=== PATIENT | female | born 1940 | race African-American/Black ===

== ENCOUNTER 2019-06-26 15:21 | Inpatient (IN) | payer MEDICARE, MEDICAID ==
[~2019-06-26] VITALS: Ht 165.1 cm; Wt 44.9 kg
[2019-06-26] MEDS ORDERED: ASPIRIN 81MG TABLET PO ONE (16:00)
[2019-06-26 16:28] LABS: BASOPHILS % 0.2 % (0.0-2.0); EOSINOPHILS % 0.2 % (0.0-5.0); HEMATOCRIT. 40.6 % (36.0-48.0); HEMOGLOBIN. 14.1 g/dL (12.0-16.0); LYMPHOCYTES % 9.4 % (20.0-50.0); MEAN CORPUSCULAR VOLUME 92.5 fL (81.0-99.0); MEAN PLATELET VOLUME 8.6 fl (7.4-10.4); MONOCYTES % 14.2 % (2.0-8.0); PLATELET 248 x1000/uL (130-400); RED BLOOD CELL COUNT 4.39 mill/uL (4.2-5.4)
[2019-06-26] MEDS: NITROGLYCERIN 0.4MG TABLET SL SL PRN ×2 (16:28→19:19)
[2019-06-26 16:31] LABS: CHLORIDE 99 mEq/L (98-107)
[2019-06-26] MEDS ORDERED: AMLODIPINE 2.5MG TABLET PO ONE (17:30)
[2019-06-26] MEDS ORDERED: ACETAMINOPHEN 325MG TABLET PO PRN (20:30)
[2019-06-26] MEDS ORDERED: ONDANSETRON HCL 4MG/2ML INJ IV PRN (20:30)
[2019-06-26] MEDS ORDERED: IPRATROPIUM/ALBUTEROL 0.5-3(2.5)MG/3ML NEB HHN PRN (20:30)
[2019-06-27 00:40] VITALS: BP 160/64
[2019-06-27] MEDS ORDERED: ATOR10TA69 MT (02:26)
[2019-06-27] MEDS ORDERED: CHOL40002 MT (02:26)
[2019-06-27] MEDS ORDERED: ALBU18HF2 IH (02:26)
[2019-06-27] MEDS ORDERED: FLUT1DIS3 INH (02:26)
[2019-06-27 04:00] VITALS: BP 143/41
[2019-06-27 08:00] VITALS: BP 132/62
[2019-06-27] MEDS ORDERED: ENOXAPARIN 40MG/0.4ML SYR SUBCUT SCH (09:00)
[2019-06-27] MEDS: ASPIRIN 81MG TABLET PO SCH (09:27)
[2019-06-27 12:00] VITALS: BP 122/72
[2019-06-27] MEDS: CLOPIDOGREL 75MG TABLET PO SCH (13:15)
[2019-06-27 16:00] VITALS: BP 125/74
[2019-06-27] MEDS ORDERED: FUROSEMIDE 40MG/4ML VIAL IVP NR (17:15)
[2019-06-27] MEDS: NITROGLYCERIN OINT 1GM/INCH UDPKT TD SCH ×2 (18:21→21:18)
[2019-06-27 20:00] VITALS: BP 122/62
[2019-06-27] MEDS ORDERED: ATORVASTATIN CALCIUM 20MG TABLET PO SCH (21:00)
[2019-06-27] MEDS: CARVEDILOL 6.25 MG TABLET PO SCH (21:17)
[2019-06-27] MEDS ORDERED: GUAIFENESIN-DM 200MG-20MG/10ML UDC PO PRN (23:45)
[2019-06-27] MEDS ORDERED: LORAZEPAM 1MG TABLET PO PRN (23:45)
[2019-06-28] VITALS: BP 139/58
[2019-06-28 04:00] VITALS: BP 167/62
[2019-06-28] MEDS: NITROGLYCERIN OINT 1GM/INCH UDPKT TD SCH (05:10)
[2019-06-28] MEDS: CLONIDINE 0.2MG TABLET PO PRN ×2 (05:44→08:31)
[2019-06-28 08:00] VITALS: BP 169/62
[2019-06-28] MEDS: CLOPIDOGREL 75MG TABLET PO SCH (08:30)
[2019-06-28] MEDS: CARVEDILOL 6.25 MG TABLET PO SCH (08:31)
[2019-06-28] MEDS: ASPIRIN 81MG TABLET PO SCH (08:31)
[2019-06-28] MEDS ORDERED: ENOXAPARIN 30MG/0.3ML SYR SUBCUT SCH (09:00)
[2019-06-28 12:00] VITALS: BP 107/52
[2019-06-28] MEDS ORDERED: ASPI-1160 PO (12:43)
[2019-06-28] MEDS ORDERED: AMLO5TAB88 MT (12:43)
[2019-06-28 13:52] VITALS: BP 107/52
== END 2019-06-28 15:20 | disposition home or self-care (01) | DRG 133 ==
LOC: ER 15:21 → 5WST 19:53 → EDBEDREQ 20:02 → ENRESERV 22:50
PROVIDERS: ADMIT Internal Medicine; ATTEND Internal Medicine
DX: J96.20 Acute and chronic respiratory failure, unspecified whether with hypoxia or hypercapnia (principal); I27.20 Pulmonary hypertension, unspecified; E87.1 Hypo-osmolality and hyponatremia; Z99.81 Dependence on supplemental oxygen; M94.0 Chondrocostal junction syndrome [Tietze]; E78.5 Hyperlipidemia, unspecified; J44.9 Chronic obstructive pulmonary disease, unspecified; F41.9 Anxiety disorder, unspecified; I10 Essential (primary) hypertension; J98.11 Atelectasis; Z87.891 Personal history of nicotine dependence; I25.10 Atherosclerotic heart disease of native coronary artery without angina pectoris; Z79.899 Other long term (current) drug therapy; Z88.0 Allergy status to penicillin; Z09 Encounter for follow-up examination after completed treatment for conditions other than malignant neoplasm; Z91.041 Radiographic dye allergy status; M19.90 Unspecified osteoarthritis, unspecified site
CPT/HCPCS: 36415; 71045; 80053; 80061; 83880; 84443; 84484; 85025; 93005; 93306; 99291; J1650; J1940

== ENCOUNTER 2021-10-30 16:44 | Inpatient (IN) | payer MEDICARE, OTHER ==
[~2021-10-30] VITALS: Ht 154.9 cm; Wt 45.4 kg
[~2021-10-30 16:44] MED LIST: ALBU18HF2 IH; AMLO5TAB88 MT; ASPI-1160 PO; ATOR10TA69 MT; CHOL40002 MT; FLUT1DIS3 INH
[2021-10-30] MEDS ORDERED: ACETAMINOPHEN 325MG TABLET PO ONE (18:00)
[2021-10-30] MEDS ORDERED: SODIUM CHLORIDE 0.9% 1000ML BAG (SEPSIS BOLUS) IV ONE (18:00)
[2021-10-30] MEDS ORDERED: LEVOFLOXACIN 750MG PREMIX 150 ML IV ONE (18:00)
[2021-10-30] MEDS ORDERED: PIPERACILLIN/TAZ 3.375G PREMIX 50 ML IV ONE (19:15)
[2021-10-30 19:35] LABS: BASOPHILS % 0.3 % (0.0-2.0); HEMATOCRIT. 42.2 % (36.0-48.0); HEMOGLOBIN. 14.1 g/dL (12.0-16.0); MEAN CORPUSCULAR HEMOGLOBIN 32.6 pg (28.0-32.0); MEAN CORPUSCULAR VOLUME 97.7 fL (81.0-99.0); MONOCYTES % 8.4 % (2.0-8.0); NEUTROPHILS % 80.3 % (40.0-76.0); PLATELET 144 x1000/uL (130-400); RED BLOOD CELL COUNT 4.32 mill/uL (4.2-5.4); RED CELL DISTRIBUTION WIDTH 13.4 % (11.6-14.6)
[2021-10-30 19:39] LABS: CHLORIDE 99 mEq/L (98-107)
[2021-10-31 02:00] VITALS: BP 139/66
[2021-10-31] MEDS ORDERED: ACETAMINOPHEN 325MG TABLET PO PRN ×2 (03:30)
[2021-10-31 04:00] VITALS: BP 114/56
[2021-10-31 08:00] VITALS: BP 126/90
[2021-10-31] MEDS: AZITHROMYCIN 500 MG in DEXT 5% WATER 250 ML IV SCH (08:29)
[2021-10-31] MEDS: AMLODIPINE 10MG TABLET PO SCH (08:29)
[2021-10-31] MEDS: DEXAMETHASONE 2MG TABLET PO SCH (08:29)
[2021-10-31] MEDS ORDERED: ENOXAPARIN 40MG/0.4ML SYR SUBCUT SCH (09:00)
[2021-10-31 12:00] VITALS: BP 125/86
[2021-10-31 16:00] VITALS: BP_SYST 143; BP_SYST 86; BP_DIAS 51; BP_DIAS 59
[2021-10-31 20:00] VITALS: BP 159/70
[2021-10-31] MEDS ORDERED: ALBUTEROL 6.7GM HFA INHALER ORI PRN (23:00)
[2021-10-31] MEDS ORDERED: CLONIDINE 0.1MG TABLET PO PRN (23:45)
[2021-11-01] VITALS: BP 174/72
[2021-11-01 04:00] VITALS: BP 132/67
[2021-11-01 08:00] VITALS: BP 154/63
[2021-11-01] MEDS: ENOXAPARIN 30MG/0.3ML SYR SUBCUT SCH (08:27)
[2021-11-01] MEDS: DEXAMETHASONE 2MG TABLET PO SCH (08:28)
[2021-11-01] MEDS: AZITHROMYCIN 500 MG in DEXT 5% WATER 250 ML IV SCH (08:28)
[2021-11-01] MEDS: AMLODIPINE 10MG TABLET PO SCH (08:29)
[2021-11-01 12:00] VITALS: BP 133/58
[2021-11-01] MEDS ORDERED: AZIT250T12 MT (12:04)
[2021-11-01 16:00] VITALS: BP 143/65
[2021-11-01 20:00] VITALS: BP 136/51
[2021-11-02] VITALS: BP 132/52
[2021-11-02 04:00] VITALS: BP 128/53
[2021-11-02 08:00] VITALS: BP 135/53
[2021-11-02] MEDS: DEXAMETHASONE 2MG TABLET PO SCH (08:39)
[2021-11-02] MEDS: ENOXAPARIN 30MG/0.3ML SYR SUBCUT SCH (08:39)
[2021-11-02] MEDS: AZITHROMYCIN 500 MG in DEXT 5% WATER 250 ML IV SCH (08:40)
[2021-11-02] MEDS: AMLODIPINE 10MG TABLET PO SCH (08:40)
[2021-11-02 12:00] VITALS: BP 144/75
[2021-11-02 16:00] VITALS: BP 142/70
[2021-11-02 20:00] VITALS: BP 147/72
[2021-11-03] VITALS: BP 111/73
[2021-11-03 04:00] VITALS: BP 102/48
[2021-11-03 08:00] VITALS: BP 135/53
[2021-11-03] MEDS: ENOXAPARIN 30MG/0.3ML SYR SUBCUT SCH (08:44)
[2021-11-03] MEDS: AZITHROMYCIN 500 MG in DEXT 5% WATER 250 ML IV SCH (08:44)
[2021-11-03] MEDS: DEXAMETHASONE 2MG TABLET PO SCH (08:44)
[2021-11-03] MEDS: AMLODIPINE 10MG TABLET PO SCH (08:44)
[2021-11-03 12:00] VITALS: BP 115/54
[2021-11-03 16:00] VITALS: BP 114/56
[2021-11-03 20:00] VITALS: BP 139/48
[2021-11-04] VITALS: BP 147/65
[2021-11-04 04:00] VITALS: BP 154/58
[2021-11-04 08:00] VITALS: BP 105/69
[2021-11-04] MEDS: AMLODIPINE 10MG TABLET PO SCH (08:20)
[2021-11-04] MEDS: ENOXAPARIN 30MG/0.3ML SYR SUBCUT SCH (09:43)
[2021-11-04] MEDS: DEXAMETHASONE 6MG TABLET PO SCH (09:43)
[2021-11-04] MEDS: AZITHROMYCIN 500 MG in DEXT 5% WATER 250 ML IV SCH (09:43)
[2021-11-04 12:00] VITALS: BP 122/48
[2021-11-04 16:00] VITALS: BP 157/58
[2021-11-04 20:00] VITALS: BP 158/70
[2021-11-04] MEDS: ALBUTEROL 6.7GM HFA INHALER ORI SCH (23:00)
[2021-11-05] VITALS: BP 128/53
[2021-11-05 04:00] VITALS: BP 148/50
[2021-11-05] MEDS: ALBUTEROL 6.7GM HFA INHALER ORI SCH (05:00)
[2021-11-05 08:00] VITALS: BP 148/38
[2021-11-05] MEDS: AMLODIPINE 10MG TABLET PO SCH (10:39)
[2021-11-05] MEDS: DEXAMETHASONE 6MG TABLET PO SCH (10:39)
[2021-11-05] MEDS: ENOXAPARIN 30MG/0.3ML SYR SUBCUT SCH (10:40)
[2021-11-05] MEDS ORDERED: GUAIFENESIN-DM 200MG-20MG/10ML UDC PO PRN (11:00)
[2021-11-05 12:00] VITALS: BP 154/45
[2021-11-05 16:00] VITALS: BP 144/54
[2021-11-05 20:00] VITALS: BP 142/57
[2021-11-05 20:39] LABS: HEMATOCRIT. 42.7 % (36.0-48.0); HEMOGLOBIN. 14.6 g/dL (12.0-16.0); MEAN CORPUSCULAR HEMOGLOBIN 32.6 pg (28.0-32.0); MEAN CORPUSCULAR VOLUME 95.1 fL (81.0-99.0); MEAN PLATELET VOLUME 9.4 fl (7.4-10.4); PLATELET 207 x1000/uL (130-400); RED BLOOD CELL COUNT 4.49 mill/uL (4.2-5.4)
[2021-11-05 21:03] LABS: CHLORIDE 100 mEq/L (98-107)
[2021-11-05 21:04] LABS: PLATELET ESTIMATE NORMAL
[2021-11-06] VITALS: BP 124/85
[2021-11-06 04:00] VITALS: BP_SYST 146; BP_SYST 147; BP_DIAS 47
[2021-11-06 08:00] VITALS: BP 158/50
[2021-11-06] MEDS: ENOXAPARIN 30MG/0.3ML SYR SUBCUT SCH (08:32)
[2021-11-06] MEDS: AMLODIPINE 10MG TABLET PO SCH (08:32)
[2021-11-06] MEDS: DEXAMETHASONE 6MG TABLET PO SCH (08:32)
[2021-11-06 12:00] VITALS: BP 145/45
[2021-11-06 16:00] VITALS: BP 140/48
[2021-11-06 20:00] VITALS: BP 142/59
[2021-11-07] VITALS: BP 164/66
[2021-11-07 04:00] VITALS: BP 133/44
[2021-11-07 08:00] VITALS: BP 138/50
[2021-11-07 08:08] LABS: CHLORIDE 104 mEq/L (98-107)
[2021-11-07 08:17] LABS: HEMATOCRIT 41.4 % (36.0-48.0); HEMOGLOBIN 14.2 g/dL (12.0-16.0); MEAN CORPUSCULAR HEMOGLOBIN 32.6 pg (28.0-32.0); MEAN CORPUSCULAR VOLUME 95.4 fL (81.0-99.0); PLATELET 169 x1000/uL (130-400); RED BLOOD CELL COUNT 4.34 mill/uL (4.2-5.4); RED CELL DISTRIBUTION WIDTH 13.5 % (11.6-14.6)
[2021-11-07] MEDS: DEXAMETHASONE 6MG TABLET PO SCH (09:10)
[2021-11-07] MEDS: AMLODIPINE 10MG TABLET PO SCH (09:10)
[2021-11-07] MEDS: ENOXAPARIN 30MG/0.3ML SYR SUBCUT SCH (09:10)
[2021-11-07] MEDS: ALBUTEROL 6.7GM HFA INHALER ORI SCH ×4 (11:18→23:56)
[2021-11-07 12:00] VITALS: BP 142/50
[2021-11-07 13:14] LABS: BG BASE EXCESS 0.8 mmol/L (-2.0-2.0); BG CARBOXYHEMOGLOBIN 0.8 % (0.5-1.5); BG DEOXYHEMOGLOBIN 10.6 % (0.0-5.0); BG FRACTION INSPIRED OXYGEN 36; BG HCO3 ACT 22.9 mmol/L (22.0-26.0); BG METHEMOGLOBIN 0.2 % (0.0-1.5); BG OXYGEN SATURATION 89.3 % (92.0-98.5); BG OXYHEMOGLOBIN 88.4 % (94.0-97.0); BG PCO2 30.3 mmHg (35.0-45.0); BG PH 7.497 (7.350-7.450); BG PO2 51.5 mmHg (75.0-100.0); BG SAMPLE SITE RIGHT RADIAL; BG TOTAL HEMOGLOBIN 15.3 g/dL (12.0-18.0); BG VENT MODE NASAL CANNULA
[2021-11-07 16:00] VITALS: BP 140/58
[2021-11-07 20:00] VITALS: BP 140/68
[2021-11-07 20:27] LABS: CLARITY URINE CLEAR (CLEAR); COLOR URINE YELLOW (YELLOW); KETONES URINE TRACE (NEGATIVE); LEUKOCYTE ESTERASE URINE NEGATIVE (NEGATIVE); NITRITE URINE NEGATIVE (NEGATIVE); OCCULT BLOOD URINE NEGATIVE (NEGATIVE); PH URINE 5.5 (4.5-8.0); PROTEIN URINE 1+ (NEGATIVE); SPECIFIC GRAVITY URINE 1.027 (1.005-1.030)
[2021-11-08] VITALS: BP 139/55
[2021-11-08 04:00] VITALS: BP 134/78
[2021-11-08] MEDS: ALBUTEROL 6.7GM HFA INHALER ORI SCH ×6 (04:11→23:56)
[2021-11-08 08:00] VITALS: BP 123/53
[2021-11-08] MEDS: ENOXAPARIN 30MG/0.3ML SYR SUBCUT SCH (08:41)
[2021-11-08] MEDS: AMLODIPINE 10MG TABLET PO SCH (08:41)
[2021-11-08] MEDS: DEXAMETHASONE 6MG TABLET PO SCH (08:41)
[2021-11-08 12:00] VITALS: BP 131/49
[2021-11-08 16:00] VITALS: BP 142/45
[2021-11-08 20:00] VITALS: BP 124/61
[2021-11-08] MEDS: QUETIAPINE FUMARATE 25MG TABLET PO SCH (21:02)
[2021-11-09] VITALS: BP 123/45
[2021-11-09] MEDS: ALBUTEROL 6.7GM HFA INHALER ORI SCH ×4 (03:53→12:00)
[2021-11-09 08:00] VITALS: BP 133/53
[2021-11-09] MEDS: AMLODIPINE 10MG TABLET PO SCH (09:00)
[2021-11-09] MEDS: QUETIAPINE FUMARATE 25MG TABLET PO SCH ×2 (09:00→20:48)
[2021-11-09] MEDS: ENOXAPARIN 30MG/0.3ML SYR SUBCUT SCH (09:00)
[2021-11-09 12:00] VITALS: BP 157/51
[2021-11-09] MEDS ORDERED: LORAZEPAM 2MG/ML CPJ IV PRN (12:00)
[2021-11-09 16:00] VITALS: BP 153/52
[2021-11-09 20:00] VITALS: BP 142/58
[2021-11-10] VITALS: BP 138/50
[2021-11-10 04:00] VITALS: BP 144/57
[2021-11-10 08:00] VITALS: BP_SYST 149
[2021-11-10] MEDS: ALBUTEROL 6.7GM HFA INHALER ORI SCH ×4 (08:00→21:54)
[2021-11-10] MEDS: AMLODIPINE 10MG TABLET PO SCH (09:41)
[2021-11-10] MEDS: QUETIAPINE FUMARATE 25MG TABLET PO SCH ×2 (09:41→21:51)
[2021-11-10] MEDS: ENOXAPARIN 30MG/0.3ML SYR SUBCUT SCH (09:41)
[2021-11-10 12:00] VITALS: BP 115/52
[2021-11-10 16:00] VITALS: BP 124/52
[2021-11-10 20:00] VITALS: BP 128/44
[2021-11-11] VITALS: BP 132/56
[2021-11-11] MEDS: ALBUTEROL 6.7GM HFA INHALER ORI SCH ×2 (01:52→04:00)
[2021-11-11 04:00] VITALS: BP 118/57
[2021-11-11 08:00] VITALS: BP 120/73
[2021-11-11] MEDS: QUETIAPINE FUMARATE 25MG TABLET PO SCH (09:40)
[2021-11-11] MEDS: ENOXAPARIN 30MG/0.3ML SYR SUBCUT SCH (09:40)
[2021-11-11] MEDS: AMLODIPINE 10MG TABLET PO SCH (09:41)
[2021-11-11 12:00] VITALS: BP 150/76
[2021-11-11 12:33] VITALS: BP 150/78
== END 2021-11-11 13:00 | DRG 720 ==
LOC: ER 16:44 → MICUSO 21:33 → EDBEDREQ 21:42 → 7WST 10-31 02:04 → 7EST 11-03 12:36
PROVIDERS: ADMIT Internal Medicine; ATTEND Internal Medicine
DX: A41.89 Other specified sepsis (principal); J96.20 Acute and chronic respiratory failure, unspecified whether with hypoxia or hypercapnia; J12.82 Pneumonia due to coronavirus disease 2019; U07.1 COVID-19; G93.41 Metabolic encephalopathy; J98.8 Other specified respiratory disorders; E87.1 Hypo-osmolality and hyponatremia; J44.0 Chronic obstructive pulmonary disease with (acute) lower respiratory infection; I10 Essential (primary) hypertension; Z99.81 Dependence on supplemental oxygen; Z88.0 Allergy status to penicillin; Z91.041 Radiographic dye allergy status; Z79.899 Other long term (current) drug therapy
CPT/HCPCS: 36415; 36600; 71045; 80048; 80053; 81003; 82140; 82375; 82607; 82805; 83605; 83880; 84145; 84443; 84484; 85025; 85027; 87426; 93005; 93970; 97110; 97116; 97162; 97166; 97530; 97535; 99285; J0456; J1650; J1956; J2543; J7030; J7060; J8540